=== PATIENT | male | born 1990 | race Caucasian/White ===

== ENCOUNTER 2017-01-01 03:18 | Emergency (ER) | payer OTHER ==
--- NOTE | 2017-01-01 04:48 | ED ORDER SUMMARY ---
..... Patient: RAFFY WHITE OrderSheet [facility] VisitID: [id number] [address] [place] [address] 26y, M Registration Date/Time: 01/01/2017 ORDER SHEET Weight: 68.0 kg (stated) Allergies: Penicillins GENERAL ORDERS: CBC w Diff Urgent (03:01/01/2017 Ramila Junior) (Ack 3:29 PWeiler ER Tech1) (3:49 CFalkner R.N.) CMP Urgent (03:01/01/2017 Ramila Junior) (Ack 3:29 PWeiler ER Tech1) (3:49 CFalkner R.N.) MEDICATION ORDERS: IV FLUIDS: IV NS : initial bolus none -, then 1000 mL/hr for X1 (NOW) (03:01/01/2017 Ramila Junior) (3:43 HSoule) Solu-MEDROL IV 125 mg (NOW) (03:01/01/2017 Ramila Junior) (3:44 HSoule) Benadryl IV 50 mg (NOW) (03:01/01/2017 Ramila Junior) (3:44 HSoule) Famotidine IV 20 mg/50mL (NOW) (03:01/01/2017 Ramila Junior) (3:44 HSoule) ORDER SHEET NOTES: [Electronically signed by Bryanna Camarillo (05:27 01/01/2017)] [Electronically signed by Irvin Luke Dr. (05:43 01/01/2017)] [Electronically locked/signed by Bryanna Camarillo (05:01/01/2017)]
--- NOTE | 2017-01-01 04:48 | ED ORDER SUMMARY ---
..... Patient: RAFFY WHITE OrderSheet [facility] VisitID: [id number] [address] [place] [address] 26y, M Registration Date/Time: 01/01/2017 ORDER SHEET Weight: 68.0 kg (stated) Allergies: Penicillins GENERAL ORDERS: CBC w Diff Urgent (03:01/01/2017 Raimla Junior) (Ack 3:29 PWeiler ER Tech1) (3:49 CFalkner R.N.) CMP Urgent (03:01/01/2017 Ramila Junior) (Ack 3:29 PWeiler ER Tech1) (3:49 CFalkner R.N.) MEDICATION ORDERS: IV FLUIDS: IV NS : initial bolus none -, then 1000 mL/hr for X1 (NOW) (03:01/01/2017 Ramila Junior) (3:43 HSoule) Solu-MEDROL IV 125 mg (NOW) (03:01/01/2017 Ramila Junior) (3:44 HSoule) Benadryl IV 50 mg (NOW) (03:01/01/2017 Ramila Junior) (3:44 HSoule) Famotidine IV 20 mg/50mL (NOW) (03:01/01/2017 Ramlia Junior) (3:44 HSoule) ORDER SHEET NOTES: [Electronically signed by Bryanna Camarillo (05:27 01/01/2017)] [Electronically signed by Irvin Luke Dr. (05:43 01/01/2017)] [Electronically locked/signed by Bryanna Camarillo (05:01/01/2017)]
--- NOTE | 2017-01-01 04:48 | ED NURSING NOTES ---
Clinical Report - Nurses [facility] [address] [place] [place] [address] 01/01/2017 3:20 [id number] Triage time 03:Jan 01 2017. Acuity: LEVEL 2. Chief Complaint: ALLERGIC REACTION and HIVES and DIFFICULTY BREATHING SEPSIS SCREEN: Sepsis Screen: negative. Negative (no infection suspected/documented). FADUMO COMA SCORE: [place] Coma Scale: 15- eyes open spontaneously (4); best verbal response- oriented x 4 (5); best motor response- obeys commands (6). --03:28 Bryanna Camarillo 03:24 01/01/17. BP: 102/74. HR: 110. RR: 22. O2 saturation: 96%. Temp: 98 F (oral). Pain level now: 0/10. --03:28 Bryanna Camarillo. Weight: 68 kg stated. Height/Length: 68 inches Per Patient. BMI: 22.8. --03:26 Bryanna Camarillo. Medications None. --03:25 Bryanna Camarillo. Medication/allergy information source: the patient. --03:28 Bryanna Camarillo. Allergies Penicillins. --03:26 Bryanna Camarillo. History Arrived by private vehicle. Historian: patient. Unaccompanied. This started just prior to arrival. ( Patient reports he shot up some heroin about thirty minutes ago and he states he began to have an allergic reaction. He reports hives, wheezing, itching. Provider at bedside). He has had itching. PAST MEDICAL HX: Immunizations: status is unknown. SOCIAL HX: Heavy tobacco smoker (cigarette)- less than 1 pack per day. History of drug use: heroin, methamphetamines, marijuana. No alcohol use. No infectious disease exposure. ABUSE ASSESSMENT: No report of abuse. FALL RISK ASSESSMENT: Fall risk assessment completed. No fall risk identified. NUTRITIONAL RISK ASSESSMENT: The nutritional risk assessment revealed no deficiencies. FUNCTIONAL ASSESSMENT: Functional assessment: no impairments noted. LEARNING NEEDS ASSESSMENT: The learning needs assessment revealed no barriers. SKIN INTEGRITY ASSESSMENT: Skin integrity risk assessment completed. No skin integrity risk identified. --: rByanna Camarillo. PROBLEMS: no known problems. ADDITIONAL SURGERIES: no known surgeries. Interventions ID band on patient. To treatment room. --: Bryanna Camarillo. PHYSICAL ASSESSMENT 03:01/01/17. To room via wheelchair. GENERAL / NEURO / PSYCH: Alert. Appears anxious. Oriented X 4. HEENT: Mucous membranes are pink. RESPIRATORY: Respirations not labored. CVS: Cardiac rhythm: sinus tachycardia; (110). SKIN: Skin is intact, warm and dry. Generalized urticaria- associated with itching, swelling and increased warmth. --: Bryanna Camarillo. NURSING PROGRESS NOTES shelter monitor, pulse oximeter and NIBP monitor placed on patient; monitor alarms on. Patient gowned. Warming measures: blanket applied. Reassurance given to the patient. Two patient identifiers checked. Call light placed in reach. Side rails up x 1. Bed placed in lowest position. Patient ready for evaluation- chart flagged and ED physician notified. --: Bryanna Camarillo 03:01/01/2017 Site #1 started via IV in the right forearm with an 22g angiocath; one attempt. Blood drawn: rainbow set. Labeled in the presence of the patient and sent to the lab. Saline lock flushed with 10 mL saline. --: Bryanna Camarillo :01/01/2017 Started bag #1 1000 mL IV Fluids IV NS (Saline); at 1000 mL/hr over 1 hour(s) via site #1 via IV pump. Allergies verified and confirmed 5 rights. IV patency established. IV site checked: no pain, redness, or swelling. IV flushed thoroughly pre- and post-medication administration. --: Bryanna Camarillo :44 01/01/2017 SOLU-MEDROL (MethylPREDNISolone Sodium Succ) IVP 125 mg given over 2 minute(s) via site #1. Allergies verified and confirmed 5 rights. IV patency established. IV site checked: no pain, redness, or swelling. IV flushed thoroughly pre- and post-medication administration. IVP given by RN. --: Bryanna Camarillo :01/01/2017 Benadryl (DiphenhydrAMINE HCl) IVP 50 mg given over 1 minute(s) via site #1. Allergies verified, confirmed 5 rights and sedative warning given to the patient. IV patency established. IV site checked: no pain, redness, or swelling. IV flushed thoroughly pre- and post-medication administration. IVP given by RN. --03:44 Bryanna Camarillo 03:44 01/01/2017 Famotidine IVP 20 mg given over 30 minute(s) via site #1. Allergies verified and confirmed 5 rights. IV patency established. IV site checked: no pain, redness, or swelling. IV flushed thoroughly pre- and post-medication administration. IVP given by RN. --03:44 Bryanna Camarillo 03:44 01/01/17. BP: 120/70. HR: 79. RR: 16. O2 saturation: 98% on room air. --03:45 Bryanna Camarillo Patient ID band checked for patient name and birthdate: patient confirmed. Blood samples drawn from the right forearm peripheral IV site with Vacutainer by nurse per protocol ; labeled in presence of the patient and sent to lab: rainbow set. Line flushed with 10 mL normal saline post blood draw. --03:45 Bryanna Camarillo 04:13 01/01/17. BP: 107/67. HR: 73. RR: 12. O2 saturation: 95% on room air. --04:13 Bryanna Camarillo Reassessment after medication administered. Overall patient status is improved. He states does not feel better. ( Patient hives and itching has subsided). SKIN: Skin is warm and dry. --04:14 Bryanna Camarillo 04:46 01/01/17. BP: 115/60. HR: 70. RR: 20. O2 saturation: 95% on room air. --04:47 Bryanna Camarillo 04:55 01/01/2017 IV Fluids IV NS Discontinued: bag #1 completed upon discharge. Total amount infused: 1000 mL. IV patency established. IV site checked: no pain, redness, or swelling. IV flushed thoroughly. --05:27 Bryanna Camarillo. DISPOSITION / DISCHARGE 05:00 01/01/17. BP: 116/65. HR: 72. RR: 16. O2 saturation: 97% on room air. Temp: 97.9 F (oral). Pain level now: 0/10. --: Bryanna Camarillo 04:55 01/01/2017 Site #1 removed upon discharge. Catheter intact. Bandaid applied. --: Bryanna Camarillo 05:00 01/01/17. Condition at departure: improved and stable. The goals identified in the patient's plan of care were met. Learning barriers present. Ability to learn limited by poor cooperation. Discharge instructions provided and reviewed with the patient. Reviewed medication(s) side effects, precautions, dosing and course information. Prescription(s) given to the patient. Reviewed need for increased fluid intake. Patient verbalized understanding. Written instructions provided in Salvadorean. ( Follow up with your doctor in three days. Return if symptoms return. Get help for substance abuse, resources provided.). The patient was discharged by the physician. He was discharged home and accompanied by plasma specialist. He left the Emergency Department ambulatory and via private vehicle. Separator Tender driving. --05: Bryanna Camarillo. Locked/Released at 01/01/2017 5:27 by Bryanna Camarillo,
--- NOTE | 2017-01-01 04:48 | ED NURSING NOTES ---
Clinical Report - Nurses [facility] [address] [place] [place] [address] 01/01/2017 3:20 [id number] Triage time 03:Jan 01 2017. Acuity: LEVEL 2. Chief Complaint: ALLERGIC REACTION and HIVES and DIFFICULTY BREATHING SEPSIS SCREEN: Sepsis Screen: negative. Negative (no infection suspected/documented). FADUMO COMA SCORE: [place] Coma Scale: 15- eyes open spontaneously (4); best verbal response- oriented x 4 (5); best motor response- obeys commands (6). --03:28 Bryanna Camarillo 03:24 01/01/17. BP: 102/74. HR: 110. RR: 22. O2 saturation: 96%. Temp: 98 F (oral). Pain level now: 0/10. --03:28 Bryanna Camarillo. Weight: 68 kg stated. Height/Length: 68 inches Per Patient. BMI: 22.8. --03:26 Bryanna Camarillo. Medications None. --03:25 Bryanna Camarillo. Medication/allergy information source: the patient. --03:28 Bryanna Camarillo. Allergies Penicillins. --03:26 Bryanna Camarillo. History Arrived by private vehicle. Historian: patient. Unaccompanied. This started just prior to arrival. ( Patient reports he shot up some heroin about thirty minutes ago and he states he began to have an allergic reaction. He reports hives, wheezing, itching. Provider at bedside). He has had itching. PAST MEDICAL HX: Immunizations: status is unknown. SOCIAL HX: Heavy tobacco smoker (cigarette)- less than 1 pack per day. History of drug use: heroin, methamphetamines, marijuana. No alcohol use. No infectious disease exposure. ABUSE ASSESSMENT: No report of abuse. FALL RISK ASSESSMENT: Fall risk assessment completed. No fall risk identified. NUTRITIONAL RISK ASSESSMENT: The nutritional risk assessment revealed no deficiencies. FUNCTIONAL ASSESSMENT: Functional assessment: no impairments noted. LEARNING NEEDS ASSESSMENT: The learning needs assessment revealed no barriers. SKIN INTEGRITY ASSESSMENT: Skin integrity risk assessment completed. No skin integrity risk identified. --: Bryanna Camarillo. PROBLEMS: no known problems. ADDITIONAL SURGERIES: no known surgeries. Interventions ID band on patient. To treatment room. --: Bryanna Camarillo. PHYSICAL ASSESSMENT 03:01/01/17. To room via wheelchair. GENERAL / NEURO / PSYCH: Alert. Appears anxious. Oriented X 4. HEENT: Mucous membranes are pink. RESPIRATORY: Respirations not labored. CVS: Cardiac rhythm: sinus tachycardia; (110). SKIN: Skin is intact, warm and dry. Generalized urticaria- associated with itching, swelling and increased warmth. --: Bryanna Camarillo. NURSING PROGRESS NOTES quality assurance monitor body, pulse oximeter and NIBP monitor placed on patient; monitor alarms on. Patient gowned. Warming measures: blanket applied. Reassurance given to the patient. Two patient identifiers checked. Call light placed in reach. Side rails up x 1. Bed placed in lowest position. Patient ready for evaluation- chart flagged and ED physician notified. --: Bryanna Camarillo 03:01/01/2017 Site #1 started via IV in the right forearm with an 22g angiocath; one attempt. Blood drawn: rainbow set. Labeled in the presence of the patient and sent to the lab. Saline lock flushed with 10 mL saline. --: Bryanna Camarillo :01/01/2017 Started bag #1 1000 mL IV Fluids IV NS (Saline); at 1000 mL/hr over 1 hour(s) via site #1 via IV pump. Allergies verified and confirmed 5 rights. IV patency established. IV site checked: no pain, redness, or swelling. IV flushed thoroughly pre- and post-medication administration. --: Bryanna Camarillo :44 01/01/2017 SOLU-MEDROL (MethylPREDNISolone Sodium Succ) IVP 125 mg given over 2 minute(s) via site #1. Allergies verified and confirmed 5 rights. IV patency established. IV site checked: no pain, redness, or swelling. IV flushed thoroughly pre- and post-medication administration. IVP given by RN. --: Bryanna Camarillo :01/01/2017 Benadryl (DiphenhydrAMINE HCl) IVP 50 mg given over 1 minute(s) via site #1. Allergies verified, confirmed 5 rights and sedative warning given to the patient. IV patency established. IV site checked: no pain, redness, or swelling. IV flushed thoroughly pre- and post-medication administration. IVP given by RN. --03:44 Bryanna Camarillo 03:44 01/01/2017 Famotidine IVP 20 mg given over 30 minute(s) via site #1. Allergies verified and confirmed 5 rights. IV patency established. IV site checked: no pain, redness, or swelling. IV flushed thoroughly pre- and post-medication administration. IVP given by RN. --03:44 Bryanna Camarillo 03:44 01/01/17. BP: 120/70. HR: 79. RR: 16. O2 saturation: 98% on room air. --03:45 Bryanna Camarillo Patient ID band checked for patient name and birthdate: patient confirmed. Blood samples drawn from the right forearm peripheral IV site with Vacutainer by nurse per protocol ; labeled in presence of the patient and sent to lab: rainbow set. Line flushed with 10 mL normal saline post blood draw. --03:45 Bryanna Camarillo 04:13 01/01/17. BP: 107/67. HR: 73. RR: 12. O2 saturation: 95% on room air. --04:13 Bryanna Camarillo Reassessment after medication administered. Overall patient status is improved. He states does not feel better. ( Patient hives and itching has subsided). SKIN: Skin is warm and dry. --04:14 Bryanna Camarillo 04:46 01/01/17. BP: 115/60. HR: 70. RR: 20. O2 saturation: 95% on room air. --04:47 Bryanna Camarillo 04:55 01/01/2017 IV Fluids IV NS Discontinued: bag #1 completed upon discharge. Total amount infused: 1000 mL. IV patency established. IV site checked: no pain, redness, or swelling. IV flushed thoroughly. --05:27 Bryanna Camarillo. DISPOSITION / DISCHARGE 05:00 01/01/17. BP: 116/65. HR: 72. RR: 16. O2 saturation: 97% on room air. Temp: 97.9 F (oral). Pain level now: 0/10. --: Bryanna Camarillo 04:55 01/01/2017 Site #1 removed upon discharge. Catheter intact. Bandaid applied. --: Bryanna Camarillo 05:00 01/01/17. Condition at departure: improved and stable. The goals identified in the patient's plan of care were met. Learning barriers present. Ability to learn limited by poor cooperation. Discharge instructions provided and reviewed with the patient. Reviewed medication(s) side effects, precautions, dosing and course information. Prescription(s) given to the patient. Reviewed need for increased fluid intake. Patient verbalized understanding. Written instructions provided in Mosotho. ( Follow up with your doctor in three days. Return if symptoms return. Get help for substance abuse, resources provided.). The patient was discharged by the physician. He was discharged home and accompanied by analyst market intelligence. He left the Emergency Department ambulatory and via private vehicle. Plant And Maintenance Technician driving. --05: Bryanna Camarillo. Locked/Released at 01/01/2017 5:27 by Bryanna Camarillo,
--- NOTE | 2017-01-01 04:48 | ED CLINICAL REPORT ---
Clinical Report - Physicians/Mid Levels Located Within [facility] [address] [place] [address] 01/01/2017 3:20 Patient: RAFFY WHITE Time Seen: 03:26; initial patient contact. Arrived- By private vehicle. Historian- patient. HISTORY OF PRESENT ILLNESS Chief Complaint: ALLERGIC REACTION and "HIVES". DYSPNEA. The patient has had difficulty breathing, a skin rash, itching and swelling but not had trouble swallowing. This started just prior to arrival and is still present and worsening. It was abrupt in onset. A cause has been identified. He has recently taken medication (Heroin). Similar symptoms previously: Several times. Recent medical care: Not recently seen/assessed. REVIEW OF SYSTEMS No cough, fever, chest pain or palpitations. All systems otherwise negative, except as recorded above. PAST HISTORY Substance abuse. SOCIAL HISTORY Current every day smoker. History of heavy IV drug use: heroin, methamphetamines, marijuana. Recently used drugs just prior to arrival. Under influence in ED. No alcohol use. ADDITIONAL NOTES The nursing notes have been reviewed. PHYSICAL EXAM Vital Signs: 01/01/2017 03:24 BP: 102/74. HR: 110. RR: 22. O2 saturation: 96%. Temp: 98 F. Pain level now: 0/10. Have been reviewed. Hypotensive. Tachycardic. Tachypneic. Temperature normal. Oxygen saturation normal. Appearance: Alert. Oriented X3. No acute distress. Head and Neck: Normal external inspection. ENT: Pharynx normal. Voice normal. Neck: Neck supple. CVS: Tachycardia. Heart sounds normal. Normal rhythm. Respiratory: No respiratory distress. Breath sounds normal. Abdomen: Nontender. No organomegaly. Skin: Skin warm and dry. Extremities: No edema of extremities. Skin: Moderate generalized urticaria. Neuro: Oriented X 3. No motor deficit. LABS, X-RAYS, AND EKG Laboratory Tests: CBC w Diff: (IJEOMA: 01/01/2017 03:45) ( MsgRcvd 01/01/2017 03:59) Final results Test Result Flag Units (Reference) WHITE BLOOD COUNT 8.9 K/uL (4.5-11.5) RED BLOOD COUNT 4.66 M/uL (4.50-5.90) HEMOGLOBIN 14.4 gm/dL (13.5-17.5) HEMATOCRIT 41.1 % (41.0-53.0) MEAN CELL VOLUME 88 fL (80-100) MEAN CORPUSCULAR HGB 31 pg (26-34) MEAN CORPUSCULAR HGB CONC 35 g/dL (31-37) RED CELL DISTRIBUTION WIDTH 12.9 % (11.6-14.8) PLATELET COUNT 344 K/uL (150-400) NEUTROPHIL % 55.2 % (50-75) LYMPH % 32.3 % (25-40) MONO % 10.4 % (3-14) EOSINOPHIL % 1.7 % (0-4) BASOPHIL % 0.4 % (0-2) . PROGRESS AND PROCEDURES Course of Care: Benadryl 50 mg IVP given. Solu-Medrol 125 mg IVP given. Famotidine 20mg IVPB given. The patient's symptoms are now gone. Physical exam findings are improved. Disposition: Discharged home in good and improved condition. Condition: good. CLINICAL IMPRESSION Acute urticaria secondary to allergy. Chronic substance abuse- heroin with intoxication. INSTRUCTIONS Your Current Medications: CONTINUE TAKING THE FOLLOWING MEDICATIONS: None*. Prescription Medications: Medrol Dosepak: take according to package directions. Dispense one (1) dosepak. No refill. Substitution is permissible. Follow-up: Follow up with your doctor in about three days. Call for an appointment. Screening today revealed the patient's blood pressure to be in the normal range. (Electronically signed by Irvin Luke Dr. 01/01/2017 5:43)
--- NOTE | 2017-01-01 04:48 | ED CLINICAL REPORT ---
Clinical Report - Physicians/Mid Levels [facility] [address] [place] [address] 01/01/2017 3:20 Patient: RAFFY WHITE Time Seen: 03:26; initial patient contact. Arrived- By private vehicle. Historian- patient. HISTORY OF PRESENT ILLNESS Chief Complaint: ALLERGIC REACTION and "HIVES". DYSPNEA. The patient has had difficulty breathing, a skin rash, itching and swelling but not had trouble swallowing. This started just prior to arrival and is still present and worsening. It was abrupt in onset. A cause has been identified. He has recently taken medication (Heroin). Similar symptoms previously: Several times. Recent medical care: Not recently seen/assessed. REVIEW OF SYSTEMS No cough, fever, chest pain or palpitations. All systems otherwise negative, except as recorded above. PAST HISTORY Substance abuse. SOCIAL HISTORY Current every day smoker. History of heavy IV drug use: heroin, methamphetamines, marijuana. Recently used drugs just prior to arrival. Under influence in ED. No alcohol use. ADDITIONAL NOTES The nursing notes have been reviewed. PHYSICAL EXAM Vital Signs: 01/01/2017 03:24 BP: 102/74. HR: 110. RR: 22. O2 saturation: 96%. Temp: 98 F. Pain level now: 0/10. Have been reviewed. Hypotensive. Tachycardic. Tachypneic. Temperature normal. Oxygen saturation normal. Appearance: Alert. Oriented X3. No acute distress. Head and Neck: Normal external inspection. ENT: Pharynx normal. Voice normal. Neck: Neck supple. CVS: Tachycardia. Heart sounds normal. Normal rhythm. Respiratory: No respiratory distress. Breath sounds normal. Abdomen: Nontender. No organomegaly. Skin: Skin warm and dry. Extremities: No edema of extremities. Skin: Moderate generalized urticaria. Neuro: Oriented X 3. No motor deficit. LABS, X-RAYS, AND EKG Laboratory Tests: CBC w Diff: (IJEOMA: 01/01/2017 03:45) ( MsgRcvd 01/01/2017 03:59) Final results Test Result Flag Units (Reference) WHITE BLOOD COUNT 8.9 K/uL (4.5-11.5) RED BLOOD COUNT 4.66 M/uL (4.50-5.90) HEMOGLOBIN 14.4 gm/dL (13.5-17.5) HEMATOCRIT 41.1 % (41.0-53.0) MEAN CELL VOLUME 88 fL (80-100) MEAN CORPUSCULAR HGB 31 pg (26-34) MEAN CORPUSCULAR HGB CONC 35 g/dL (31-37) RED CELL DISTRIBUTION WIDTH 12.9 % (11.6-14.8) PLATELET COUNT 344 K/uL (150-400) NEUTROPHIL % 55.2 % (50-75) LYMPH % 32.3 % (25-40) MONO % 10.4 % (3-14) EOSINOPHIL % 1.7 % (0-4) BASOPHIL % 0.4 % (0-2) . PROGRESS AND PROCEDURES Course of Care: Benadryl 50 mg IVP given. Solu-Medrol 125 mg IVP given. Famotidine 20mg IVPB given. The patient's symptoms are now gone. Physical exam findings are improved. Disposition: Discharged home in good and improved condition. Condition: good. CLINICAL IMPRESSION Acute urticaria secondary to allergy. Chronic substance abuse- heroin with intoxication. INSTRUCTIONS Your Current Medications: CONTINUE TAKING THE FOLLOWING MEDICATIONS: None*. Prescription Medications: Medrol Dosepak: take according to package directions. Dispense one (1) dosepak. No refill. Substitution is permissible. Follow-up: Follow up with your doctor in about three days. Call for an appointment. Screening today revealed the patient's blood pressure to be in the normal range. (Electronically signed by Irvin Luke Dr. 01/01/2017 5:43)
--- NOTE | 2017-01-01 05:44 | ED MED RECONCILIATION SUMMARY ---
Patient: RAFFY WHITE Medication Reconciliation Report [facility] VisitID: [id number] [address] [place] [address] 26y, M Registration Date/Time: 01/01/2017 Weight: 68.0 kg Height/Length: 68 in. BMI: 22.8 ALLERGIES: Penicillins The patient's Home Medications are listed below: NONE. The source(s) of the original Home Medication information: patient The following Medications were given to the patient in the Emergency Department: IV NS IV Fluids bolus 0, then 1000 mL/hr, administered: 01/01/2017 3:43:00 AM SOLU-MEDROL [IVP] IVP 125 mg, administered: 01/01/2017 3:44:00 AM Benadryl [IVP] IVP 50 mg, administered: 01/01/2017 3:44:00 AM Famotidine [IVP] IVP 20 mg, administered: 01/01/2017 3:44:00 AM The following Medications were prescribed to the patient: Medrol Dosepak: take according to package directions. Dispense one (1) dosepak. No refill. Substitution is permissible. -- Irvin Luke Dr.
--- NOTE | 2017-01-01 05:44 | ED DISCHARGE INSTRUCTIONS ---
Patient: RAFFY WHITE General Instructions [facility] VisitID: [id number] [place] [address] 26y, M Registration Date/Time: 01/01/2017 Acute urticaria secondary to allergy. Chronic substance abuse- heroin with intoxication. INSTRUCTIONS Your Current Medications: CONTINUE TAKING THE FOLLOWING MEDICATIONS: None*. Prescription Medications: Medrol Dosepak: take according to package directions. Dispense one (1) dosepak. No refill. Substitution is permissible. Follow-up: Follow up with your doctor in about three days. Call for an appointment. Screening today revealed the patient's blood pressure to be in the normal range. ADDITIONAL INFORMATION Hives Hives is an itchy red rash that can appear suddenly and move about your body. It goes away in one place and comes back in another. This is usually caused by something that you are allergic to such as: EATING: fruit, shellfish, chocolate, nuts, tomatoes or medicine BREATHING: pollens, animal hair/fur or mold spores Exposure to cold air, sun rays or exercise can sometimes cause an attack. Many times we cannot find a cause. Medicines can be used to reduce itching and swelling. The rash will usually fade over several days, but can sometimes last up to two weeks. Home Care: 1) Do not wear tight clothing and do not take hot baths/showers since heat can make the itching worse. 2) An ice pack (ice cubes in a plastic bag, wrapped in a towel) will reduce local areas of redness and itching. Lanacaine cream or Solarcaine spray (or other product containing "benzocaine") will reduce itching. 3) Oral Benadryl (diphenhydramine) is an antihistamine available at drug and grocery stores. Unless a prescription antihistamine was given, Benadryl may be used to reduce itching if large areas of the skin are involved. Use lower doses during the daytime and higher doses at bedtime since the drug may make you sleepy. [NOTE: Do not use Benadryl if you have glaucoma or if you are a man with trouble urinating due to an enlarged prostate.] Claritin (loratadine) is an antihistamine that causes less drowsiness and is a good alternative for daytime use. 4) If you know what you are sensitive to, avoid this substance. Future reactions could be worse than this one. Follow Up with your doctor as directed by our staff, if symptoms do not begin to improve in two days. If you have had a severe reaction, or have had several episodes of hives, then ask your doctor about allergy testing to find out what you are allergic to. Get Prompt Medical Attention if any of the following occur: -- Trouble breathing or swallowing -- New or increased swelling in the face, lips, tongue or throat -- Dizziness, weakness or fainting Opiate Abuse Use and abuse of heroin or prescription pain medicines (Vicodin, codeine) may lead to physical ADDICTION or psychological DEPENDENCE. Once this occurs, you are at greater risk for any of the following: - Craving for the drug and unable to stop using the drug even though you think you want to stop (psychological dependence) - Drug withdrawal symptoms if you stop taking the drug (physical addiction) - Loss of your job or your family - Arrest, conviction and halfway sentence for possession of an illegal substance or for driving under the influence of such a substance - Accidental injuries to yourself or others while you are under the influence of the drug (in a car or at home). - HIV infection (much greater risk if you use IV drugs) - Other sexually transmitted diseases (Herpes, chlamydia, gonorrhea and others) - Severe and fatal infection of the heart valves (if you use IV drugs) - Stroke, heart attack, hepatitis B or C, kidney failure - from overdose Home Care: 1) Admit you have a drug problem. Ask for help from your family and close friends. 2) Seek professional help. This could be individual psychotherapy, counseling, or a drug treatment program (outpatient or residential). 3) Join a self-help group for drug abuse. 4) Avoid friends who abuse drugs themselves or tempt you to continue your habit 5) Eat a balanced diet and begin a regular exercise program. Follow Up with your doctor or as advised by our staff. Contact one of the resources below for help. National [place] on Alcoholism and Drug Dependence, www.ncadd.org 246-010-ZVKG Narcotics Anonymous (check your phone book for a local listing or call 908-206-6109) www.na.org National Alcohol and Substance Abuse Information Center (for referral to treatment programs) Www.[employer] 005-613-1135 Get Prompt Medical Attention if any of the following occur: -- Symptoms of withdrawal (agitation, anxiety, trembling, sweats, diarrhea, unable to sleep) -- Chest pain -- Unexplained fever over 100.4 F (38.0 C) -- Excessive drowsiness or inability to be awakened -- Slow breathing under 8 breaths per minute -- Shortness of breath or cough with colored sputum -- Redness, swelling or tenderness at an injection site Methylprednisolone Oral tablet What is this medicine? METHYLPREDNISOLONE (meth ill pred NISS [place] lone) is a corticosteroid. It is commonly used to treat inflammation of the skin, joints, lungs, and other organs. Common conditions treated include asthma, allergies, and arthritis. It is also used for other conditions, such as blood disorders and diseases of the adrenal glands. How should I use this medicine? Take this medicine by mouth with a drink of water. Follow the directions on the prescription label. Take it with food or milk to avoid stomach upset. If you are taking this medicine once a day, take it in the morning. Do not take more medicine than you are told to take. Do not suddenly stop taking your medicine because you may develop a severe reaction. Your doctor will tell you how much medicine to take. If your doctor wants you to stop the medicine, the dose may be slowly lowered over time to avoid any side effects. Talk to your varnish remover regarding the use of this medicine in children. Special care may be needed. What side effects may I notice from receiving this medicine? Side effects that you should report to your doctor or health career technical education teacher as soon as possible: allergic reactions like skin rash, itching or hives, swelling of the face, lips, or tongue eye pain, decreased or blurred vision, or bulging eyes fever, sore throat, sneezing, cough, or other signs of infection, wounds that will not heal increased thirst mental depression, mood swings, mistaken feelings of self importance or of being mistreated pain in hips, back, ribs, arms, shoulders, or legs swelling of the ankles, feet, hands trouble passing urine or change in the amount of urine Side effects that usually do not require medical attention (report to your doctor or health career technical education teacher if they continue or are bothersome): confusion, excitement, restlessness headache nausea, vomiting skin problems, acne, thin and shiny skin weight gain What may interact with this medicine? Do not take this medicine with any of the following medications: mifepristone This medicine may also interact with the following medications: tacrolimus vaccines warfarin What if I miss a dose? If you miss a dose, take it as soon as you can. If it is almost time for your next dose, talk to your doctor or health career technical education teacher. You may need to miss a dose or take an extra dose. Do not take double or extra doses without advice. Where should I keep my medicine? Keep out of the reach of children. Store at room temperature between 20 and 25 degrees C (68 and 77 degrees F). Throw away any unused medicine after the expiration date. What should I tell my health care provider before I take this medicine? They need to know if you have any of these conditions: Kingsland's syndrome diabetes glaucoma heart problems or disease high blood pressure infection such as herpes, measles, tuberculosis, or chickenpox kidney disease liver disease mental problems myasthenia gravis osteoporosis seizures stomach ulcer or intestine disease including colitis and diverticulitis thyroid problem an unusual or allergic reaction to lactose, methylprednisolone, other medicines, foods, dyes, or preservatives or trying to get breast-feeding What should I watch for while using this medicine? Visit your doctor or health career technical education teacher for regular checks on your progress. If you are taking this medicine for a long time, carry an identification card with your name and address, the type and dose of your medicine, and your doctor's name and address. The medicine may increase your risk of getting an infection. Stay away from people who are sick. Tell your doctor or health career technical education teacher if you are around anyone with measles or chickenpox. If you are going to have surgery, tell your doctor or health career technical education teacher that you have taken this medicine within the last twelve months. Ask your doctor or health career technical education teacher about your diet. You may need to lower the amount of salt you eat. The medicine can increase your blood sugar. If you are a diabetic check with your doctor if you need help adjusting the dose of your diabetic medicine. You have been given the following additional information: Hives Opiate Abuse Methylprednisolone Oral tablet (Electronically signed by Irvin Luke Dr. 01/01/2017 5:43)
--- NOTE | 2017-01-01 05:44 | ED MED RECONCILIATION SUMMARY ---
Patient: RAFFY WHITE Medication Reconciliation Report [facility] VisitID: [id number] [address] [place] [address] 26y, M Registration Date/Time: 01/01/2017 Weight: 68.0 kg Height/Length: 68 in. BMI: 22.8 ALLERGIES: Penicillins The patient's Home Medications are listed below: NONE. The source(s) of the original Home Medication information: patient The following Medications were given to the patient in the Emergency Department: IV NS IV Fluids bolus 0, then 1000 mL/hr, administered: 01/01/2017 3:43:00 AM SOLU-MEDROL [IVP] IVP 125 mg, administered: 01/01/2017 3:44:00 AM Benadryl [IVP] IVP 50 mg, administered: 01/01/2017 3:44:00 AM Famotidine [IVP] IVP 20 mg, administered: 01/01/2017 3:44:00 AM The following Medications were prescribed to the patient: Medrol Dosepak: take according to package directions. Dispense one (1) dosepak. No refill. Substitution is permissible. -- Irvin Luke Dr.
--- NOTE | 2017-01-01 05:44 | ED DISCHARGE INSTRUCTIONS ---
Patient: RAFFY WHITE General Instructions [facility] VisitID: [id number] [place] [address] 26y, M Registration Date/Time: 01/01/2017 Acute urticaria secondary to allergy. Chronic substance abuse- heroin with intoxication. INSTRUCTIONS Your Current Medications: CONTINUE TAKING THE FOLLOWING MEDICATIONS: None*. Prescription Medications: Medrol Dosepak: take according to package directions. Dispense one (1) dosepak. No refill. Substitution is permissible. Follow-up: Follow up with your doctor in about three days. Call for an appointment. Screening today revealed the patient's blood pressure to be in the normal range. ADDITIONAL INFORMATION Hives Hives is an itchy red rash that can appear suddenly and move about your body. It goes away in one place and comes back in another. This is usually caused by something that you are allergic to such as: EATING: fruit, shellfish, chocolate, nuts, tomatoes or medicine BREATHING: pollens, animal hair/fur or mold spores Exposure to cold air, sun rays or exercise can sometimes cause an attack. Many times we cannot find a cause. Medicines can be used to reduce itching and swelling. The rash will usually fade over several days, but can sometimes last up to two weeks. Home Care: 1) Do not wear tight clothing and do not take hot baths/showers since heat can make the itching worse. 2) An ice pack (ice cubes in a plastic bag, wrapped in a towel) will reduce local areas of redness and itching. Lanacaine cream or Solarcaine spray (or other product containing "benzocaine") will reduce itching. 3) Oral Benadryl (diphenhydramine) is an antihistamine available at drug and grocery stores. Unless a prescription antihistamine was given, Benadryl may be used to reduce itching if large areas of the skin are involved. Use lower doses during the daytime and higher doses at bedtime since the drug may make you sleepy. [NOTE: Do not use Benadryl if you have glaucoma or if you are a man with trouble urinating due to an enlarged prostate.] Claritin (loratadine) is an antihistamine that causes less drowsiness and is a good alternative for daytime use. 4) If you know what you are sensitive to, avoid this substance. Future reactions could be worse than this one. Follow Up with your doctor as directed by our staff, if symptoms do not begin to improve in two days. If you have had a severe reaction, or have had several episodes of hives, then ask your doctor about allergy testing to find out what you are allergic to. Get Prompt Medical Attention if any of the following occur: -- Trouble breathing or swallowing -- New or increased swelling in the face, lips, tongue or throat -- Dizziness, weakness or fainting Opiate Abuse Use and abuse of heroin or prescription pain medicines (Vicodin, codeine) may lead to physical ADDICTION or psychological DEPENDENCE. Once this occurs, you are at greater risk for any of the following: - Craving for the drug and unable to stop using the drug even though you think you want to stop (psychological dependence) - Drug withdrawal symptoms if you stop taking the drug (physical addiction) - Loss of your job or your family - Arrest, conviction and residential sentence for possession of an illegal substance or for driving under the influence of such a substance - Accidental injuries to yourself or others while you are under the influence of the drug (in a car or at home). - HIV infection (much greater risk if you use IV drugs) - Other sexually transmitted diseases (Herpes, chlamydia, gonorrhea and others) - Severe and fatal infection of the heart valves (if you use IV drugs) - Stroke, heart attack, hepatitis B or C, kidney failure - from overdose Home Care: 1) Admit you have a drug problem. Ask for help from your family and close friends. 2) Seek professional help. This could be individual psychotherapy, counseling, or a drug treatment program (outpatient or residential). 3) Join a self-help group for drug abuse. 4) Avoid friends who abuse drugs themselves or tempt you to continue your habit 5) Eat a balanced diet and begin a regular exercise program. Follow Up with your doctor or as advised by our staff. Contact one of the resources below for help. National [place] on Alcoholism and Drug Dependence, www.ncadd.org 907-227-VWTF Narcotics Anonymous (check your phone book for a local listing or call 240-053-3521) www.na.org National Alcohol and Substance Abuse Information Center (for referral to treatment programs) Www.[employer] 464-640-4297 Get Prompt Medical Attention if any of the following occur: -- Symptoms of withdrawal (agitation, anxiety, trembling, sweats, diarrhea, unable to sleep) -- Chest pain -- Unexplained fever over 100.4 F (38.0 C) -- Excessive drowsiness or inability to be awakened -- Slow breathing under 8 breaths per minute -- Shortness of breath or cough with colored sputum -- Redness, swelling or tenderness at an injection site Methylprednisolone Oral tablet What is this medicine? METHYLPREDNISOLONE (meth ill pred NISS [place]) is a corticosteroid. It is commonly used to treat inflammation of the skin, joints, lungs, and other organs. Common conditions treated include asthma, allergies, and arthritis. It is also used for other conditions, such as blood disorders and diseases of the adrenal glands. How should I use this medicine? Take this medicine by mouth with a drink of water. Follow the directions on the prescription label. Take it with food or milk to avoid stomach upset. If you are taking this medicine once a day, take it in the morning. Do not take more medicine than you are told to take. Do not suddenly stop taking your medicine because you may develop a severe reaction. Your doctor will tell you how much medicine to take. If your doctor wants you to stop the medicine, the dose may be slowly lowered over time to avoid any side effects. Talk to your oil heaterman regarding the use of this medicine in children. Special care may be needed. What side effects may I notice from receiving this medicine? Side effects that you should report to your doctor or health career developer as soon as possible: allergic reactions like skin rash, itching or hives, swelling of the face, lips, or tongue eye pain, decreased or blurred vision, or bulging eyes fever, sore throat, sneezing, cough, or other signs of infection, wounds that will not heal increased thirst mental depression, mood swings, mistaken feelings of self importance or of being mistreated pain in hips, back, ribs, arms, shoulders, or legs swelling of the ankles, feet, hands trouble passing urine or change in the amount of urine Side effects that usually do not require medical attention (report to your doctor or health career developer if they continue or are bothersome): confusion, excitement, restlessness headache nausea, vomiting skin problems, acne, thin and shiny skin weight gain What may interact with this medicine? Do not take this medicine with any of the following medications: mifepristone This medicine may also interact with the following medications: tacrolimus vaccines warfarin What if I miss a dose? If you miss a dose, take it as soon as you can. If it is almost time for your next dose, talk to your doctor or health career developer. You may need to miss a dose or take an extra dose. Do not take double or extra doses without advice. Where should I keep my medicine? Keep out of the reach of children. Store at room temperature between 20 and 25 degrees C (68 and 77 degrees F). Throw away any unused medicine after the expiration date. What should I tell my health care provider before I take this medicine? They need to know if you have any of these conditions: Lenore's syndrome diabetes glaucoma heart problems or disease high blood pressure infection such as herpes, measles, tuberculosis, or chickenpox kidney disease liver disease mental problems myasthenia gravis osteoporosis seizures stomach ulcer or intestine disease including colitis and diverticulitis thyroid problem an unusual or allergic reaction to lactose, methylprednisolone, other medicines, foods, dyes, or preservatives or trying to get breast-feeding What should I watch for while using this medicine? Visit your doctor or health career developer for regular checks on your progress. If you are taking this medicine for a long time, carry an identification card with your name and address, the type and dose of your medicine, and your doctor's name and address. The medicine may increase your risk of getting an infection. Stay away from people who are sick. Tell your doctor or health career developer if you are around anyone with measles or chickenpox. If you are going to have surgery, tell your doctor or health career developer that you have taken this medicine within the last twelve months. Ask your doctor or health career developer about your diet. You may need to lower the amount of salt you eat. The medicine can increase your blood sugar. If you are a diabetic check with your doctor if you need help adjusting the dose of your diabetic medicine. You have been given the following additional information: Hives Opiate Abuse Methylprednisolone Oral tablet (Electronically signed by Irvin Luke Dr. 01/01/2017 5:43)
--- NOTE | 2017-01-01 05:44 | ED MAR SUMMARY ---
..... Medication Administration Record [facility] [address] [place] [address] Patient: RAFFY WHITE Visit ID: [id number] 26y, M Weight: 68.0 kg Height/Length: 68 in BMI: 22.8 ALLERGIES: Penicillins Start 03:43 01/01/2017 Bryanna Camarillo,, Stop 04:55 01/01/2017 Bryanna Camarillo, Medication Administered: IV NS (SALINE), Dose: IV Fluids over 1 hour(s), Rate: 1000 mL/hr, Dispensed: 1000 mL bag, Site: #1 right forearm. Medication Ordered: IV NS : initial bolus none -, then 1000 mL/hr for X1 (NOW). Given 03:01/01/2017 Bryanna Camarillo, Medication Administered: SOLU-MEDROL [IVP] (METHYLPREDNISOLONE SODIUM SUCC), Dose: 125 mg IVP over 2 minute(s), Site: #1 right forearm. Medication Ordered: Solu-MEDROL IV 125 mg (NOW). Given 03:01/01/2017 Bryanna Camarillo, Medication Administered: BENADRYL [IVP] (DIPHENHYDRAMINE HCL), Dose: 50 mg IVP over 1 minute(s), Site: #1 right forearm. Medication Ordered: Benadryl IV 50 mg (NOW). Given 03:01/01/2017 Bryanna Camarillo, Medication Administered: FAMOTIDINE [IVP], Dose: 20 mg IVP over 30 minute(s), Site: #1 right forearm. Medication Ordered: Famotidine IV 20 mg/50mL (NOW).
--- NOTE | 2017-01-01 05:44 | ED MAR SUMMARY ---
..... Medication Administration Record [facility] [address] [place] [address] Patient: RAFFY WHITE Visit ID: [id number] 26y, M Weight: 68.0 kg Height/Length: 68 in BMI: 22.8 ALLERGIES: Penicillins Start 03:43 01/01/2017 Bryanna Camarillo,, Stop 04:55 01/01/2017 Bryanna Camarillo, Medication Administered: IV NS (SALINE), Dose: IV Fluids over 1 hour(s), Rate: 1000 mL/hr, Dispensed: 1000 mL bag, Site: #1 right forearm. Medication Ordered: IV NS : initial bolus none -, then 1000 mL/hr for X1 (NOW). Given 03:01/01/2017 Bryanna Camarillo, Medication Administered: SOLU-MEDROL [IVP] (METHYLPREDNISOLONE SODIUM SUCC), Dose: 125 mg IVP over 2 minute(s), Site: #1 right forearm. Medication Ordered: Solu-MEDROL IV 125 mg (NOW). Given 03:01/01/2017 Bryanna Camarillo, Medication Administered: BENADRYL [IVP] (DIPHENHYDRAMINE HCL), Dose: 50 mg IVP over 1 minute(s), Site: #1 right forearm. Medication Ordered: Benadryl IV 50 mg (NOW). Given 03:01/01/2017 Bryanna Camarillo, Medication Administered: FAMOTIDINE [IVP], Dose: 20 mg IVP over 30 minute(s), Site: #1 right forearm. Medication Ordered: Famotidine IV 20 mg/50mL (NOW).
== END 2017-01-01 05:00 | disposition home or self-care (01) ==
LOC: ED SRH 03:18
DX: L50.0 Allergic urticaria (principal); F11.129 Opioid abuse with intoxication, unspecified; F12.90 Cannabis use, unspecified, uncomplicated; F15.90 Other stimulant use, unspecified, uncomplicated; F17.210 Nicotine dependence, cigarettes, uncomplicated
CPT/HCPCS: 90100; 95059